=== PATIENT | female | born 1970 | race African-American/Black ===

== ENCOUNTER → 2022-09-12 | Day surgery (SDC) | payer OTHER | END | disposition home or self-care (01) | LOC: JMAMMO-SUR 13:32 | PROVIDERS: ATTEND Surgery | PROC: BH40ZZZ Ultrasonography of Right Breast (ICD-10-PCS; principal; 2022-09-12) | DX: N63.20 Unspecified lump in the left breast, unspecified quadrant (principal) | CPT/HCPCS: 19281; A4648 ==

== ENCOUNTER 2022-09-17 04:23 | Day surgery (SDC) | payer OTHER ==
[2022-09-12 16:06] VITALS: BMI 25.8
[2022-09-17] MEDS ORDERED: LIDOCAINE HCL 1%, 10 MG/ML (10ML VIAL) MDV ONE (12:39)
[2022-09-17] MEDS ORDERED: LIDOCAINE HCL/PF 2% SDV 5ML VIAL ONE (12:40)
[2022-09-17] MEDS ORDERED: MIDAZOLAM HCL 2 MG/2 ML SINGLE DOSE VIAL ONE (12:40)
[2022-09-17] MEDS ORDERED: PROPOFOL 20 ML ONE (12:40)
[2022-09-17] MEDS ORDERED: PROPOFOL 40 ML ONE (13:32)
[2022-09-17] MEDS ORDERED: ceFAZolin SODIUM 1 GM VIAL ONE (13:36)
[2022-09-17] MEDS ORDERED: DEXAMETHASONE SOD PHOSPHATE 4 MG/1 ML VIAL ONE (13:38)
[2022-09-17] MEDS ORDERED: ceFAZolin SODIUM 1 GM VIAL IVPB ONE (13:38)
[2022-09-17] MEDS ORDERED: LIDOCAINE HCL 1%, 10 MG/ML (20ML VIAL) INF ONE (13:46)
[2022-09-17] MEDS ORDERED: ONDANSETRON 4 MG/2 ML VIAL ONE (13:57)
[2022-09-17] MEDS ORDERED: KETOROLAC TROMETHAMINE 30 MG/1 ML VIAL ONE (13:57)
[2022-09-17] MEDS ORDERED: PROMETHAZINE HCL 25 MG/1 ML VIAL IVPB PRN (14:33)
[2022-09-17] MEDS ORDERED: oxyCODONE HCL 5 MG TABLET PO PRN ×2 (14:33)
[2022-09-17] MEDS ORDERED: ONDANSETRON 4 MG/2 ML VIAL IVPUSH PRN (14:33)
[2022-09-17] MEDS ORDERED: LACTATED RINGERS SOLUTION 1,000 ML IV SCH (14:45)
[2022-09-17 16:32] VITALS: BP 132/70; PULSE 55; RESP 18; TEMP 98.2
== END 2022-09-17 16:37 | disposition home or self-care (01) ==
LOC: JASU-SURG 04:23
PROVIDERS: ATTEND Surgery
PROC: 0HBU0ZX Excision of Left Breast, Open Approach, Diagnostic (ICD-10-PCS; principal; 2022-09-17 08:00)
DX: N63.20 Unspecified lump in the left breast, unspecified quadrant (principal)
CPT/HCPCS: 76098-TC-FY; 88307-TC; 88341-TC; 88342-TC; 94760